=== PATIENT | male | born 1955 | race Caucasian/White ===

== ENCOUNTER 2016-09-02 17:52 | Inpatient (IN) | payer OTHER ==
[2016-09-02] MEDS ORDERED: ADENOSINE 6 MG/2 ML VIAL ONE (18:03)
--- NOTE | 2016-09-02 18:07 | CPEKG ---
Heart Rate: 187 RR Interval: 321 P-R Interval: 128 QRSD Interval: 172 QT Interval: 292 QTC Interval: 515 P Mcandrews: 0 QRS Mcandrews: 144 T Wave Mcandrews: -60 EKG Severity - ABNORMAL ECG - EKG Impression: EXTREME TACHYCARDIA WITH WIDE COMPLEX, NO FURTHER RHYTHM ANALYSIS ATTEMPTED Electronically Signed By: Juanita Dickey 02-Sep-2016 23:12:35
[2016-09-02] MEDS ORDERED: NS 500 ML IV ONE (18:11)
[2016-09-02] MEDS ORDERED: ASPIRIN 81 MG CHEWABLE TAB PO ONE (18:11)
[2016-09-02] MEDS ORDERED: ADENOSINE 6 MG/2 ML VIAL IVP ONE ×2 (18:11→18:25)
--- NOTE | 2016-09-02 18:13 | EDPHY ---
H & P Time Seen by Provider: 09/02/16 18:08 HPI/ROS: CHIEF COMPLAINT: palpitations, chest tightness HISTORY OF PRESENT ILLNESS: Patient is a 60-year-old male with a history of pulmonary hypertension and coronary artery disease who presents emergency department with palpitations and rapid heart beat. Patient states he was cross- country skiing earlier today. He noticed some mild chest tightness. This resolved 20. Skiing. He then noticed palpitations. He checked his heart rate on an O2 sat monitor and found to be tachycardic. 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 He informed the patient he was concerned about pulmonary hypertension and flash pulmonary edema. He sent the patient to the emergency department for further care. At this time the patient has no shortness of breath or chest pain. No cough. He still complains of palpitations. He has no leg pain or swelling. Patient drove out from [place] recently. REVIEW OF SYSTEMS: My complete review of systems is negative except as mentioned in the HPI. Past Medical/Surgical History: Includes pulmonary hypertension, SVT, coronary artery disease, factor 5 Leiden Past surgical history: Includes ablation, stent placement Social history: The patient is not smoke use alcohol. The patient is from [place]. Smoking Status: Never smoked Physical Exam: Vitals noted. Tachycardia. GENERAL: Well-appearing, in no acute distress, alert. HEENT: Eyes normal to inspection, normal pharynx, no signs of dehydration. NECK: No thyromegaly, no lymphadenopathy, supple. RESPIRATORY: Clear to auscultation bilaterally, no rales, rhonchi or wheezing. Normal. CVS: Regular tachycardia, no rubs, murmurs, or gallops. ABDOMEN: Soft, nontender, nondistended, no organomegaly. BACK: Normal to inspection, no CVA tenderness. SKIN: Normal color, no rash, warm, dry. No pallor. EXTREMITIES: No pedal edema, no calf tenderness, no Homans sign or cords, no joint swelling. Normal NEURO/PSYCH: Alert and oriented x3, normal mood and affect. Constitutional: Initial Vital Signs Temperature (C) 36.5 C 09/02/16 17:53 Heart Rate 187 H 09/02/16 17:53 Respiratory Rate 18 09/02/16 17:53 Blood Pressure 115/83 H 09/02/16 17:53 O2 Sat (%) 97 09/02/16 17:53 O2 Delivery Mode Nasal Cannula O2 (L/minute) 4 Allergies/Adverse Reactions: naproxen [Naproxen] Allergy (Intermediate, Verified 06/24/10 08:32) Hives Home Medications: Medication Instructions Recorded ALBUTEROL SULFATE 05/18/10 Aspirin 325 mg 05/18/10 FLOVENT HFA 05/18/10 Lipitor 40mg 05/18/10 Medical Decision Making ED Course/Re-evaluation: In the emergency department I met the patient on arrival. It bedside EKG was performed. Patient was placed on a outpatient therapist. Pacer pads were placed. Patient was noted to have a wide complex tachycardia. This did not appear to be ventricular tachycardia. I obtained patient's old EKG. He does have interventricular conduction delay previously. The morphology was similar. I discussed possible etiologies with the patient and his . I answered all her questions. Patient was given an aspirin 324 mg orally, laboratory studies, chest x-ray were ordered. Procedure: medical cardioversion #1 Indication: SVT I discussed the pros and cons and risks and benefits. I answered all the patient's questions. He consented to the procedure. Patient was given adenosine 12 mg IV push. I reviewed the patient's rhythm strip during medication administration.. The patient had a block and slowing of his rhythm. However, he then went into what appeared to be return of his white complex tachycardia. I discussed the findings with the patient and . I answered all his questions. Procedure: medical cardioversion #2 Indication: SVT I discussed the pros and cons and risks and benefits. I answered all the patient's questions. He consented to the procedure. Patient was given adenosine 12 mg IV push. I reviewed the patient's rhythm strip during medication administration.. The patient had a block and slowing of his rhythm. He then had intermittent paced rhythm with potentially underlying AFib. I discussed the case with Dr. Cornelius from Cardiology. He recommended the patient be given metoprolol 5 mg IV. I discussed the findings and plan with the patient. I paged the patient's pacer interrogated. 18 46: The patient is not lightheaded or dizzy. He has no chest pain. He continues to be tachycardic at 133 with an irregular rhythm. Patient hospitalist service for admission. Dr. Erazo admitted. 1855: Dr. Erazo is in the emergency department evaluating the patient 2000: Patient is still in AFib. His rate ranges from 100-120. He has no chest pain or shortness of breath. He had numerous questions. I was at his bedside for 10-15 minutes answering all questions. Differential Diagnosis: My differential includes but is not limited to SVT, atrial fibrillation, atrial flutter, V-tach, electrolyte abnormality, sugar abnormality, pulmonary embolus, dehydration Critical Care Time: Patient required 35 minutes of critical care time. This was exclusive of any unbundled procedure He had extensive time at the patient's bedside, consultation with Cardiology and Internal Medicine, numerous rechecks. - Data Points Laboratory Results: Laboratory Results 09/02/16 18:00 09/02/16 18:00 09/02/16 18:00 WBC 12.59 H 10^3/uL (3.80-9.50) RBC 4.88 10^6/uL (4.40-6.38) Hgb 15.8 g/dL (13.7-17.5) Hct 45.3 % (40.0-51.0) MCV 92.8 fL (81.5-99.8) MCH 32.4 pg (27.9-34.1) MCHC 34.9 g/dL (32.4-36.7) RDW 13.2 % (11.5-15.2) Plt Count 273 10^3/uL (150-400) MPV 9.0 fL (8.7-11.7) Neut % (Auto) 76.3 H % (39.3-74.2) Lymph % (Auto) 11.2 L % (15.0-45.0) [place] % (Auto) 11.4 % (4.5-13.0) Eos % (Auto) 0.4 L % (0.6-7.6) Baso % (Auto) 0.3 % (0.3-1.7) Nucleat RBC Rel Count 0.0 % (0.0-0.2) Absolute Neuts (auto) 9.60 H 10^3/uL (1.70-6.50) Absolute Lymphs (auto) 1.41 10^3/uL (1.00-3.00) Absolute Monos (auto) 1.44 H 10^3/uL (0.30-0.80) Absolute Eos (auto) 0.05 10^3/uL (0.03-0.40) Absolute Basos (auto) 0.04 10^3/uL (0.02-0.10) Absolute Nucleated RBC 0.00 10^3/uL (0-0.01) Immature Gran % 0.4 % (0.0-1.1) Immature Gran # 0.05 10^3/uL (0.00-0.10) PT 23.8 H SEC (12.0-15.0) INR 2.11 H (0.83-1.16) APTT 34.5 SEC (23.0-38.0) D-Dimer < 0.27 ug/mLFEU (0.00-0.50) Sodium 144 mEq/L (134-144) Potassium 4.0 mEq/L (3.5-5.2) Chloride 106 mEq/L (97-110) Carbon Dioxide 25 mEq/l (22-31) Anion Gap 13 mEq/L (8-16) BUN 25 H mg/dL (7-23) Creatinine 1.1 mg/dL (0.7-1.3) Estimated GFR > 60 Glucose 98 mg/dL (70-100) Calcium 9.7 mg/dL (8.5-10.4) Troponin I 0.028 ng/mL (0-0.034) NT-Pro-B Natriuret Pep 158 H pg/mL (0-125) Medications Given: Discontinued Medications Adenosine (Adenosine) 12 mg IVP EDNOW ONE Stop: 09/02/16 18:12 Last Admin: 09/02/16 18:21 Dose: 12 mg Adenosine (Adenosine) 12 mg IVP EDNOW ONE Stop: 09/02/16 18:26 Last Admin: 09/02/16 18:14 Dose: 12 mg Aspirin (Aspirin) 324 mg PO EDNOW ONE Stop: 09/02/16 18:12 Last Admin: 09/02/16 18:41 Dose: 324 mg Sodium Chloride (Ns) 500 mls @ 0 mls/hr IV ONCE ONE PRN Reason: As Directed Stop: 09/02/16 18:12 Last Admin: 09/02/16 18:00 Dose: 500 mls Metoprolol Tartrate (Lopressor Injection) 5 mg IVP EDNOW ONE Stop: 09/02/16 18:46 Last Admin: 09/02/16 18:30 Dose: 5 mg Departure - Departure Disposition: [facility] Inpatient Acute Clinical Impression: SVT (supraventricular tachycardia), Atrial fibrillation with rapid ventricular response Chest pain Qualifiers: Chest pain type: unspecified Qualifier Code: (R07.9) Chest pain, unspecified Condition: Good
[2016-09-02 18:20] LABS: % IMMATURE GRANULYOCYTES 0.4 % (0.0-1.1); ABSOLUTE IMMATURE GRANULOCYTES 0.05 10^3/uL (0.00-0.10); ADD DIFF? NO; ADD MORPH? NO; ADD SCAN? NO; ATYPICAL LYMPHOCYTE FLAG 0 (0-99); FRAGMENT RBC FLAG 0 (0-99); HEMATOCRIT 45.3 % (40.0-51.0); HEMOGLOBIN 15.8 g/dL (13.7-17.5); LEFT SHIFT FLG 0 (0-99); LIPEMIA HEMOLYSIS FLAG 90 (0-99); MEAN CELL HEMOGLOBIN 32.4 pg (27.9-34.1); MEAN CELL HEMOGLOBIN CONCENTR. 34.9 g/dL (32.4-36.7); MEAN CELL VOLUME 92.8 fL (81.5-99.8); PLATELET CLUMPS FLAG 10 (0-99); PLATELET COUNT 273 10^3/uL (150-400); RED BLOOD CELL COUNT 4.88 10^6/uL (4.40-6.38); RED CELL DISTRIBUTION WIDTH 13.2 % (11.5-15.2)
--- NOTE | 2016-09-02 18:27 | CPEKG ---
Heart Rate: 133 RR Interval: 451 QRSD Interval: 154 QT Interval: 384 QTC Interval: 572 P [place]: 0 QRS [place]: 134 T Wave [place]: -40 EKG Severity - ABNORMAL ECG - EKG Impression: VENTRICULAR-PACED COMPLEXES EKG Impression: NONSPECIFIC INTRAVENTRICULAR CONDUCTION DELAY EKG Impression: NONSPECIFIC ST DEPRESSION Electronically Signed By: Juanita Dickey 02-Sep-2016 23:12:35
[2016-09-02] MEDS ORDERED: METOPROLOL TARTRATE 5 MG/5 ML INJ ONE (18:28)
[2016-09-02 18:29] LABS: INR 2.11 (0.83-1.16); PROTIME(PATIENT) 23.8 SEC (12.0-15.0)
[2016-09-02 18:30] LABS: ANION GAP 13 mEq/L (8-16); APTT 34.5 SEC (23.0-38.0); CALCIUM 9.7 mg/dL (8.5-10.4); CARBON DIOXIDE 25 mEq/l (22-31); CHLORIDE 106 mEq/L (97-110); CREATININE 1.1 mg/dL (0.7-1.3); GLOMERULAR FILTRATION RATE > 60; GLUCOSE 98 mg/dL (70-100); SODIUM 144 mEq/L (134-144)
[2016-09-02 18:41] LABS: TROPONIN I 0.028 ng/mL (0-0.034)
[2016-09-02] MEDS ORDERED: METOPROLOL TARTRATE 5 MG/5 ML INJ IVP ONE (18:45)
[2016-09-02] MEDS ORDERED: LORazepam 0.5 MG TAB PO PRN (19:20)
[2016-09-02] MEDS ORDERED: TEMAZEPAM 15 MG CAP PO PRN (19:20)
[2016-09-02] MEDS ORDERED: LORazepam 2 MG/ML INJ IVP PRN (19:20)
[2016-09-02] MEDS ORDERED: ACETAMINOPHEN 325 MG TAB PO PRN (19:20)
[2016-09-02] MEDS ORDERED: HYDROCODONE/APAP 5/325 TAB PO PRN (19:20)
[2016-09-02] MEDS ORDERED: ALBUTEROL 3 ML DEYVIAL IH PRN (19:20)
[2016-09-02] MEDS ORDERED: ONDANSETRON DISINTEGRATING 4 MG TAB PO PRN (19:20)
[2016-09-02] MEDS ORDERED: ONDANSETRON 4 MG/2 ML VIAL IVP PRN (19:20)
[2016-09-02] MEDS ORDERED: HYDROmorphONE/DILAUDID 1 MG/ML SYR IVP PRN (19:20)
--- NOTE | 2016-09-02 19:25 | DX ---
Portable Chest, 18:32 Clinical Indications: Chest pain Comparison: September 24, 2010 Findings: The heart remains enlarged , with a prominent right atrial contour. The pulmonary vascular ity remains normal. There is no pulmonary edema or pleural effusion. There are chronic old healed lef t rib fractures. There is no pneumothorax. A right chest wall pacer device an associated 3 pacer lead s remain in place. EKG leads and oxygen tubing overlies the chest. Impression: Chronic right-sided cardiomegaly without failure. Nothing acute identified.
[2016-09-02] MEDS ORDERED: NS W/ 20 KCl/L 1,000 ML IV SCH (19:30)
[2016-09-02 19:39] LABS: COLOR PALE YELLOW; LEUKOCYTE ESTERASE,URINE NEGATIVE (NEGATIVE); NITRITE,URINE NEGATIVE (NEGATIVE)
--- NOTE | 2016-09-02 20:10 | GHP ---
[f rep st] HISTORY AND PHYSICAL DATE OF ADMISSION: 09/02/2016 CHIEF COMPLAINT: Shortness of breath and tachycardia. PCP: Dr. Anthony. HISTORY OF PRESENT ILLNESS: This is a 60-year-old male with a known history of pulmonary hypertensio n, coronary artery disease, and asthma, who presents with a complaint of palpitations and rapid heart beat. He was cross-country skiing earlier today and noticed he developed chest tightness rated 4 to 5/10. He was out on a trail skiing and slowed down but continued to notice the palpitations then he was a bit weak but the chest heaviness and pressure did not worsen with further exertion. He has an O2 saturation monitor and checked it for his heart rate and said it was as high as 150. He called the [facility] in [place] who was concerned about flash pulmonary edema and [facility]. Here on arrival, he was noted to be in an SVT at least 150-160, he was gi nicholas 2 doses of adenosine without change and then was given metoprolol 5 mg IV and slowed to atrial fi brillation at a rate of approximately 100. Intermittently, he was noted to be AV paced as he has a d ual chamber pacer which was placed in 2009. I am seeing the patient in the emergency department. Donnell rodríguez heart rate is approximately 100 in atrial fibrillation and he is without chest discomfort or chest pain, shortness of breath. During the time of the event of cross-country skiing, though he had chest pressure, he did not have diaphoresis, nausea, or vomiting. Denies recent fever, chills, sweats, sore throat, cough, or abdominal pain. He does have a known his tory of asthma which he treats daily with a steroid inhaler. He also has known pulmonary hypertensio n which was diagnosed in 2009. PAST MEDICAL HISTORY: 1. Coronary artery disease, status post stent placement in 1998. It was a straight metal stent and not a drug-eluting stent. He is currently taking a baby aspirin along with Coumadin. He has had no recurrence of chest pain and no further intervention since 1998. 2. Cardiac rhythm disturbance characterized today by an SVT as noted above. He is status post a pac emaker placement in [address] Anthony at this facility. 3. Pulmonary hypertension which was diagnosed again in 2009, the etiology is unknown. 4. Factor V Leiden deficiency for which he is on full dose anticoagulation of warfarin. 5. Asthma for which he uses bronchodilators and a steroid inhaler. 6. Hypertension. PAST SURGICAL HISTORY: An ablation in 11/2014 by his pipe fitter ammonia in [place], stent placement in 1998. SOCIAL HISTORY: The gentleman is a nonsmoker but he rarely uses alcohol. He lives in [place]. 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 FAMILY HISTORY: No history of coronary disease or pulmonary disease. MEDICATIONS: Lipitor, Flovent HFA inhaler, aspirin reported at 325 mg although he says he is taking a baby aspirin at 81 mg, and an albuterol inhaler. These medications are being checked by the [employer] cist and I will reconcile them once this is accomplished. PHYSICAL EXAM: GENERAL: This is a pleasant alert gentleman who, at this time, is resting comfortabl y. I am seeing him in the emergency department. VITAL SIGNS: Blood pressure is 93/78, heart rate a pproximately 100 in atrial fibrillation. Respiratory rate 16, nonlabored. Normal oxygen saturation on supplemental oxygen and he is afebrile. HEENT: Normal and there are no signs of trauma. NECK: Supple. CHEST: Chest wall shows a pectus excavatum. Normal chest wall excursion. LUNGS: Clear to P and A without wheezing or rales. HEART: Singular S1 and singular S2. No murmur, gallop, or rub. He is in atrial fibrillation in an irregularly irregular rhythm with a ventricular rate of approxim ately 100. ABDOMEN: Nontender and benign with normoactive bowel sounds. No masses, tenderness, or organomegaly. EXTREMITIES: No edema, cyanosis, or clubbing. The right side of the chest shows a pa cer implanted. NEUROLOGIC: He is oriented x3. Calm and appropriate gentleman. Cranial nerves 2-12 are intact to specific testing. LABORATORY DATA: WBC elevated 12,000, hemoglobin 15.5, INR is therapeutic at 2.1. His Chem panel sh ows mild elevation of BUN at 25 but otherwise is normal. His BNP is 158. Troponin normal at 0.8. ASSESSMENT: 1. Acute supraventricular tachycardia characterized in the emergency department. He is status post 2 doses of adenosine and 1 of metoprolol and now is in atrial fibrillation at a controlled ventricula r rate of approximately 100. His troponin is normal. Cardiology has been notified and the pacer darek romero be interrogated. A cardiac echo will be obtained and serial troponins also obtain in light of the possibility of coronary disease. 2. Known coronary artery disease. Serial troponins will be obtained. 3. Pulmonary hypertension dating to 2009 of an unknown etiology. 4. Factor V Leiden deficiency. We will continue his full dose anticoagulation. 5. Known asthma for which he is on a steroid inhaler and bronchodilators. Appropriate bronchodilato rs will be ordered and we will continue his steroid inhaler. PLAN: Per above, Cardiology will be seeing the patient in the morning. Cardiac consult will be obta ined along with an echocardiogram and serial troponins. We will continue to treat his ventricular ra te with beta blockers, as needed for the evening. It is of note that this is the first time the alondra barrera is aware that he has had atrial fibrillation although that is possible by history as he had his pacemaker placed for bradycardia and there may have been other rhythms noted which he does not recal l. His code status is full. His DVT prophylaxis will be with full dose anticoagulation. POA is unknown at this time. The patient will be admitted to inpatient. He will require greater than 2 midnights for resolution of his cardiac rhythm disturbance. /[id number]/MODL
[2016-09-02] MEDS ORDERED: QUEtiapine FUMARATE 50 MG TAB PO SCH (22:00)
[2016-09-02] MEDS ORDERED: ATORVASTATIN CALCIUM 40 MG TAB PO SCH (22:00)
[2016-09-02] MEDS ORDERED: LORazepam 0.5 MG TAB PO SCH (22:00)
[2016-09-02] MEDS ORDERED: lamoTRIgine 100 MG TAB PO SCH (22:37)
[2016-09-02] MEDS ORDERED: WARFARIN SODIUM 5 MG TAB PO SCH (23:00)
[2016-09-02] MEDS ORDERED: WARFARIN SODIUM 1 MG TAB PO SCH (23:00)
[2016-09-02] MEDS: ARIPiprazole 10 MG TAB PO SCH (23:10)
[2016-09-03 04:47] LABS: % IMMATURE GRANULYOCYTES 0.3 % (0.0-1.1); ABSOLUTE IMMATURE GRANULOCYTES 0.02 10^3/uL (0.00-0.10); ADD DIFF? NO; ADD MORPH? NO; ADD SCAN? NO; ATYPICAL LYMPHOCYTE FLAG 10 (0-99); FRAGMENT RBC FLAG 0 (0-99); HEMATOCRIT 38.9 % (40.0-51.0); HEMOGLOBIN 13.4 g/dL (13.7-17.5); LEFT SHIFT FLG 0 (0-99); LIPEMIA HEMOLYSIS FLAG 90 (0-99); MEAN CELL HEMOGLOBIN 32.2 pg (27.9-34.1); MEAN CELL HEMOGLOBIN CONCENTR. 34.4 g/dL (32.4-36.7); MEAN CELL VOLUME 93.5 fL (81.5-99.8); MEAN PLATELET VOLUME 8.8 fL (8.7-11.7); PLATELET CLUMPS FLAG 10 (0-99); PLATELET COUNT 237 10^3/uL (150-400); RED BLOOD CELL COUNT 4.16 10^6/uL (4.40-6.38); RED CELL DISTRIBUTION WIDTH 13.4 % (11.5-15.2)
[2016-09-03 05:07] LABS: ALANINE AMINOTRANSFERASE 52 IU/L (21-72); ALBUMIN 3.2 g/dL (3.5-5.0); ALKALINE PHOSPHATASE 96 IU/L (38-126); ANION GAP 9 mEq/L (8-16); ASPARTATE AMINOTRANSFERASE 30 IU/L (17-59); BILIRUBIN,TOTAL 0.9 mg/dL (0.1-1.4); CALCIUM 8.5 mg/dL (8.5-10.4); CARBON DIOXIDE 23 mEq/l (22-31); CHLORIDE 111 mEq/L (97-110); GLOMERULAR FILTRATION RATE > 60; GLUCOSE 82 mg/dL (70-100); POTASSIUM 4.1 mEq/L (3.5-5.2); SODIUM 143 mEq/L (134-144); TOTAL PROTEIN 5.4 g/dL (6.3-8.2)
[2016-09-03 05:10] LABS: TROPONIN I 0.076 ng/mL (0-0.034)
[2016-09-03 05:11] LABS: CREATINE KINASE-MB FRACTION 4.64 ng/mL (0-3.19)
[2016-09-03 05:52] LABS: CK-MB INTERPRETATION NEGATIVE (NEGATIVE)
[2016-09-03] MEDS ORDERED: amLODIPine BESYLATE 5 MG TAB PO SCH (09:00)
--- NOTE | 2016-09-03 09:03 | CPEKG ---
Heart Rate: 116 RR Interval: 517 P-R Interval: 140 QRSD Interval: 158 QT Interval: 392 QTC Interval: 545 P Bells: 0 QRS Bells: 135 T Wave Bells: -40 EKG Severity - ABNORMAL ECG - EKG Impression: UNDERLYING AF WITH PACED VENTRICULAR RHYTHM ALTERNATING WITH CONDUCTION OVER EKG Impression: ACCESSORY PATHWAY Electronically Signed By: Sean Delgado 03-Sep-2016 10:20:40
--- NOTE | 2016-09-03 09:46 | PDCARCONS ---
Cardiology Consult Reason for Consult: chest pressure with history of CAD and PCI (bare metal) Chief Complaint: "Tachycardia" Requesting Physician: Hospitalist Team History of Present Illness: Patient is a 60 y/o male with history of pulmonary hypertension, CAD s/p PCI ( unknown vessel), SVT s/p ablation, factor V Leiden (on coumadin), HLP, and HTN, who presented to [facility] ER with complaints of "tachycardia" yesterday after cross country skiing. Patient has been feeling very well in general. Patient is visiting [place] for about two weeks (plans on leaving to fly back [facility] tomorrow). Regular exercise at home has not precipitated symptoms similar to this in the recent past. Chest tightness and pressure were noted, but no juve "pains". No PND or orthopnea. No abnormal shortness of breath, diaphoresis, or dizziness. Given the symptoms noted, the patient contacted cardiology out [facility], and recommendations were for the patient to proceed to the ER. In the ER the patient was noted to be in "SVT". Adenosine was dosed (6 mg then 12 mg) and the patient converted out of SVT and into atrial fibrillation with intermittent pacing. In speaking with the ER physician last night, we opted to admit the patient to the hospital for observation (and serial cardiac biomarkers ) as well as an echocardiogram. Today, the patient is feeling well. No voiced cardiovascular complaints. Echocardiogram with normal wall motion (dilation of the right atrium was noted) as well as right ventricular systolic pressures of 45- 50 mm Hg. No wall motion abnormalities were noted. Moderate tricuspid regurgitation noted ( likely secondary to pacer lead). Mild elevation in troponin has been noted ( 0.075). Ongoing atrial fibrillation with intermittent pacing on the telemetry with rates to 130 bpm. History Information - Allergies/Home Medication List Allergies/Adverse Reactions: naproxen [Naproxen] Allergy (Intermediate, Verified 06/24/10 08:32) Hives Home Medications: Aripiprazole [Abilify] 15 mg PO DAILY 09/02/16 [Last Taken 09/02/16] Aspirin EC [Aspirin EC 81 mg (*)] 81 mg PO DAILY 09/02/16 [Last Taken 09/02/16] Atorvastatin Calcium [Lipitor 40 mg (*)] 40 mg PO HS 09/02/16 [Last Taken ] LORazepam [Ativan (*)] 0.5 mg PO HS 09/02/16 [Last Taken 09/01/16] QUEtiapine FUMARATE [Seroquel 50 mg (*)] 50 mg PO HS 09/02/16 [Last Taken ] Warfarin Sodium [Coumadin 1MG (*)] 0.5 mg PO MOFR 09/02/16 [Last Taken Unknown] Warfarin Sodium [Coumadin 1MG (*)] 1 mg PO SUTUWETHSA 09/02/16 [Last Taken 09/01] Warfarin Sodium [Coumadin 5MG (*)] 5 mg PO DAILY16 09/02/16 [Last Taken Unknown] amLODIPine BESYLATE [Norvasc 5 mg (*)] 7.5 mg PO DAILY 09/02/16 [Last Taken 01/12] lamOTRIGine [Lamictal] 200 mg PO HS 09/02/16 [Last Taken 09/01/16] I have personally reviewed and updated: family history, medical history, social history, surgical history - Past Medical History atrial fibrillation, coronary artery disease, DVT, hypertension, hyperlipidemia , SVT Additional medical history: SVT s/p ablation and history of PCI (bare metal) - Surgical History Reports: ablation, coronary stent - Family History Positive for: non-pertinent - Social History Smoking Status: Never smoked Alcohol Use: Rarely Drug Use: None Cardiac History - Cardiac History Past Cardiac History: CAD, PCI, ABLATION, PACEMAKER Cardiac Risk Factors: hypertension (>140/90), lipidemia, male Timing/Duration: Hours Severity: moderate Severity Scale: 6 Location: substernal Activities at Onset: activity Modifying Factors: improves with: rest, other (adenosine) Associated Symptoms: denies symptoms TO Risk Evaluation age greater or equal to 65: no greater or equal to 3 CAD risk factors: yes known CAD(stenosis greater or eqaul to 50%): yes ASA use in past 7 days: yes severe angina(greater or equal to 2 episodes in 24hrs): no EKG ST changes greater or equal to 0.5mm: yes positive cardiac marker: yes Total Score: 6 TO Score: 40.9% risk Age in Years: < 65 Sex: Male Congestive Heart Failure History: No Hypertension History: Yes Stroke/TIA/Thromboembolism History: No Vascular Disease History: No Diabetes Mellitus: No [id number] Score: 5w Physical Exam Temp Pulse Resp BP Pulse Ox 36.1 C 100 18 91/69 L 92 09/03/16 07:56 09/03/16 07:56 09/03/16 07:56 09/03/16 07:56 09/03/16 07:56 O2 (L/minute) 2 Constitutional: no apparent distress, appears nourished, not in pain Eyes: PERRL Ears, Nose, Mouth, Throat: moist mucous membranes, hearing normal Cardiovascular: systolic murmur, irregularly irregular, tachycardia, No JVD, No edema Peripheral Pulses: 2+: dorsalis-pedis (R), dorsalis-pedis (L) Respiratory: no respiratory distress, no rales or rhonchi, clear to auscultation Gastrointestinal: normoactive bowel sounds, soft, non-tender abdomen Skin: warm, normal color Musculoskeletal: no muscle tenderness Neurologic: AAOx3, CN II-XII Intact Psychiatric: interacting appropriately, not anxious, not encephalopathic Lab and Imaging 09/03/16 04:27 09/03/16 04:27 WBC 6.50 10^3/uL (3.80-9.50) 09/03/16 04:27 RBC 4.16 10^6/uL (4.40-6.38) L 09/03/16 04:27 Hgb 13.4 g/dL (13.7-17.5) L 09/03/16 04:27 Hct 38.9 % (40.0-51.0) L 09/03/16 04:27 MCV 93.5 fL (81.5-99.8) 09/03/16 04:27 MCH 32.2 pg (27.9-34.1) 09/03/16 04:27 MCHC 34.4 g/dL (32.4-36.7) 09/03/16 04:27 RDW 13.4 % (11.5-15.2) 09/03/16 04:27 Plt Count 237 10^3/uL (150-400) 09/03/16 04:27 MPV 8.8 fL (8.7-11.7) 09/03/16 04:27 Neut % (Auto) 61.6 % (39.3-74.2) 09/03/16 04:27 Lymph % (Auto) 23.1 % (15.0-45.0) 09/03/16 04:27 Storey % (Auto) 12.9 % (4.5-13.0) 09/03/16 04:27 Eos % (Auto) 1.8 % (0.6-7.6) 09/03/16 04:27 Baso % (Auto) 0.3 % (0.3-1.7) 09/03/16 04:27 Nucleat RBC Rel Count 0.0 % (0.0-0.2) 09/03/16 04:27 Absolute Neuts (auto) 4.00 10^3/uL (1.70-6.50) 09/03/16 04:27 Absolute Lymphs (auto) 1.50 10^3/uL (1.00-3.00) 09/03/16 04:27 Absolute Monos (auto) 0.84 10^3/uL (0.30-0.80) H 09/03/16 04:27 Absolute Eos (auto) 0.12 10^3/uL (0.03-0.40) 09/03/16 04:27 Absolute Basos (auto) 0.02 10^3/uL (0.02-0.10) 09/03/16 04:27 Absolute Nucleated RBC 0.00 10^3/uL (0-0.01) 09/03/16 04:27 Immature Gran % 0.3 % (0.0-1.1) 09/03/16 04:27 Immature Gran # 0.02 10^3/uL (0.00-0.10) 09/03/16 04:27 PT 23.8 SEC (12.0-15.0) H 09/02/16 18:00 INR 2.11 (0.83-1.16) H 09/02/16 18:00 APTT 34.5 SEC (23.0-38.0) 09/02/16 18:00 D-Dimer < 0.27 ug/mLFEU (0.00-0.50) 09/02/16 18:00 Sodium 143 mEq/L (134-144) 09/03/16 04:27 Potassium 4.1 mEq/L (3.5-5.2) 09/03/16 04:27 Chloride 111 mEq/L (97-110) H 09/03/16 04:27 Carbon Dioxide 23 mEq/l (22-31) 09/03/16 04:27 Anion Gap 9 mEq/L (8-16) 09/03/16 04:27 BUN 22 mg/dL (7-23) 09/03/16 04:27 Creatinine 1.0 mg/dL (0.7-1.3) 09/03/16 04:27 Estimated GFR > 60 09/03/16 04:27 Glucose 82 mg/dL (70-100) 09/03/16 04:27 Calcium 8.5 mg/dL (8.5-10.4) 09/03/16 04:27 Total Bilirubin 0.9 mg/dL (0.1-1.4) 09/03/16 04:27 AST 30 IU/L (17-59) 09/03/16 04:27 ALT 52 IU/L (21-72) 09/03/16 04:27 Alkaline Phosphatase 96 IU/L (38-126) 09/03/16 04:27 Creatine Kinase 174 IU/L (0-224) 09/03/16 04:27 CK-MB (CK-2) Fraction 4.64 ng/mL (0-3.19) H 09/03/16 04:27 CK-MB (CK-2) % 2.7 % (0.0-4.0) 09/03/16 04:27 Creatine Kinase Interp NEGATIVE (NEGATIVE) 09/03/16 04:27 Troponin I 0.076 ng/mL (0-0.034) H 09/03/16 04:27 NT-Pro-B Natriuret Pep 740 pg/mL (0-125) H 09/03/16 04:27 Total Protein 5.4 g/dL (6.3-8.2) L 09/03/16 04:27 Albumin 3.2 g/dL (3.5-5.0) L 09/03/16 04:27 TSH 2.610 uIU/mL (0.465-4.680) 09/03/16 04:27 Urine Color PALE YELLOW 09/02/16 19:30 Urine Appearance CLEAR 09/02/16 19:30 Urine pH 5.0 (5.0-7.5) 09/02/16 19:30 Ur Specific [place] 1.006 (1.002-1.030) 09/02/16 19:30 Urine Protein NEGATIVE (NEGATIVE) 09/02/16 19:30 Urine Ketones NEGATIVE (NEGATIVE) 09/02/16 19:30 Urine Blood NEGATIVE (NEGATIVE) 09/02/16 19:30 Urine Nitrate NEGATIVE (NEGATIVE) 09/02/16 19:30 Urine Bilirubin NEGATIVE (NEGATIVE) 09/02/16 19:30 Urine Urobilinogen NEGATIVE EU (0.2-1.0) 09/02/16 19:30 Ur Leukocyte Esterase NEGATIVE (NEGATIVE) 09/02/16 19:30 Urine Glucose NEGATIVE (NEGATIVE) 09/02/16 19:30 Visualized and Interpreted Chest x-ray results: Yes Chest X-ray Interpretation: no infiltrate Visualized and Interpreted EKG results: Yes EKG Interpretation: Positive for: other (atrial fibrillation and intermittent pacing) Telemetry: atrial fibrillation and intermittent pacing Echocardiogram: normal LVEF with moderate tricuspid regurgitation. pacer lead present. RVSP at 44 mm Hg A/P Assessment: 60 y/o male with history of CAD s/p PCI, SVT s/p ablation, atrial fibrillation ( [id number] is 2 on coumadin), pHTN, HTN, HLP, and factor V Leiden, who presented to [facility] ER with "tachycardia". Telemetry in the ER with SVT, broken with two doses of Adenosine. Ongoing atrial fibrillation is noted. Mild leak to troponin noted (patient in SVT for several hours). Grossly normal echocardiogram. No symptoms at present. 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
[2016-09-03] MEDS: ARIPiprazole 10 MG TAB PO SCH (10:34)
--- NOTE | 2016-09-03 10:44 | ECHO ---
[id number] + + [address] : : [place] [address] : : [phone] + + Adult Echocardiographic Report + ------+ :Name: HARMEET MURDOCK CStudy Date: 09/03/2016 07:59 AM BP: 91/69 mmHg : : Hospital Admission Number: [id number] [facility]ly [facility] n: 217: :: 1955 Gender: Male Height: 66 in : :Age: 60 yrs Race: WH Weight: 140 lb : :Reason For Study: new afib : : BSA: 1.7 meters 2 : :History: new onset afib with known pul htn : + ------+ MMode/2D Measurements & Calculations IVSd: 1.0 cm RVDd: 4.1 cm FS: 41.4 % LVPWd: 0.99 cm LVIDd: 4.1 cm EDV(Teich): 73.4 ml LVIDs: 2.4 cm ESV(Teich): 20.0 ml EF(Teich): 72.7 % Normal Measurement Values: + + :LVIDd (3.5-5.7cm) IVSd (0.6-1.1cm) LVPWd (0.6-1.1cm) Aortic Root (2.0-3.7cm)Left Atrium (1.5-4.0cm): :LV Vol(d) (76-115ml) LV Vol(s) (29-48ml) Ejec Fraction (50-65%)PV Igor (0.6- 1.2m/s) TV Igor (0.4-1.0m/s) : :MV E Igor (0.8-1.0m/s)MV A Igor (0.3-1.0m/s)LVOT Igor (0.7-1.2m/s) Asc Ao Igor ( 0.9-1.8m/s) : + + Doppler Measurements & Calculations MV E max igor: Ao V2 max: LV V1 max: PA V2 max: 56.7 cm/sec 79.4 cm/sec 60.3 cm/sec 64.6 cm/sec MV A max igor: Ao max PG: LV V1 max PG: PA max P.7 cm/sec 2.5 mmHg 1.5 mmHg 1.7 mmHg MV E/A: 1.0 TR max igor: 269.7 cm/sec TR max P.2 mmHg RAP systole: 15.0 mmHg RVSP(TR): 44.2 mmHg Left Ventricle The left ventricle is normal in size and function. There is mild concentric left ventricular hypertrophy. Ejection Fraction = 73%. Diastolic dysfunction is indeterminate. The left ventricular ejection fraction is calculated at 72.7 %. No regional wall motion abnormalities noted. Abnormal septal motion most likely secondary to pacemaker. Right Ventricle The right ventricle is mildly dilated. There is a pacemaker lead in the right ventricle. The right ventricular systolic function is mildly reduced. Atria The left atrial size is normal. The right atrium is moderate to severely dilated. A dilated inferior vena cava suggests increased right atrial pressure. There is a catheter/pacemaker lead seen in the right atrium. Mitral Valve The mitral valve is normal in structure and function. There is trace mitral regurgitation. Tricuspid Valve The tricuspid valve is normal in structure and function. There is no tricuspid stenosis. There is moderate tricuspid regurgitation. Right ventricular systolic pressure is 44mmHg. There is Doppler evidence for moderate pulmonary hypertension. Aortic Valve Aortic valve is not well visualized; however from subcostal window it appears to be trileaflet. There is no aortic stenosis. There is no aortic insufficiency. Pulmonic Valve The pulmonic valve is not well visualized. Great Vessels The aortic root is not well visualized. Pericardium/Pleural There is no pericardial effusion. Conclusion A two-dimensional transthoracic echocardiogram with M-mode and Doppler was performed. (1) Left ventricular systolic ejection fraction was normal (>70%) - septal wall motion consistent with paced rhythm and atrial fibrillation (2) Mild concentric left ventricular hypertrophy (3) Diastolic dysfunction was present - patient was in atrial fibrillation (4) Mild dilation to the right ventricular chamber (5) Grossly normal left atrial dimension with moderate to severe right atrial dilation (6) Grossly normal mitral valve (7) Grossly normal aortic valve (likely trileaflet, but visualization was difficult) (8) Moderate tricuspid regurgitation - RVSP was estimated to be 40-45 mm Hg (9) Poor visualization of the pulmonic valve (10) Pacer to the right ventricular/atrial chambers (11) In comparison to prior echocardiogram (2010), RVSP is slightly lower than prior, and there has been some progression in the degree of TR noted. Final Reading Physician: Alexus Pathak signed on 09/03/2016 10:43 AM Ordering Physician: Amol Erazo Performed By: Kristina Snider
[2016-09-03 12:33] VITALS: PULSE 60; TEMP 98.1
[2016-09-03] MEDS ORDERED: NS 1,000 ML IV ONE (13:01)
[2016-09-03] MEDS ORDERED: ASPIRIN EC 325 MG TAB PO ONE ×2 (13:01→13:07)
[2016-09-03] MEDS ORDERED: FAMOTIDINE 20 MG TAB PO ONE (13:01)
[2016-09-03] MEDS ORDERED: diphenhydrAMINE 25 MG CAP PO ONE ×2 (13:01→13:07)
[2016-09-03] MEDS ORDERED: DIAZEPAM 5 MG TAB PO ONE (13:01)
[2016-09-03] MEDS ORDERED: DIAZEPAM 5 MG TAB ONE (13:07)
[2016-09-03] MEDS ORDERED: FAMOTIDINE 20 MG TAB ONE (13:07)
[2016-09-03] MEDS ORDERED: FLUTICASONE HFA 220 MCG MDI IH SCH ×2 (13:30→21:00)
--- NOTE | 2016-09-03 13:32 | HOSPPROG ---
Hospitalist Progress Note Assessment/Plan: 60 y/o male with h/o CAD visiting from [place] presents with: #SVT (resolved now in nsr) #known CAD with mild troponin elevation #pulm htn #h/o factor v leiden #h/o asthma plan -I discussed the case with Dr. Hawkins and Ashli who plan for cath later today dispo pending cath results Subjective: no chest pain or palpatations Objective: Vital Signs Temp Pulse Resp BP Pulse Ox 36.7 C 60 14 96/67 L 94 09/03/16 12:33 09/03/16 12:33 09/03/16 12:33 09/03/16 12:33 09/03/16 12:33 Laboratory Results 09/03/16 04:27 09/03/16 04:27 09/02/16 09/03/16 09/04/16 05:59 05:59 05:59 Intake Total 1225 350 Balance 1225 350 PT 23.8 SEC (12.0-15.0) H 09/02/16 18:00 INR 2.11 (0.83-1.16) H 09/02/16 18:00 Laboratory Tests 09/02/16 09/03/16 18:00 04:27 PT 23.8 H INR 2.11 H CK-MB (CK-2) Fraction 4.64 H Troponin I 0.076 H - Physical Exam Constitutional: no apparent distress, appears nourished, not in pain Ears, Nose, Mouth, Throat: moist mucous membranes, hearing normal, ears appear normal, no oral mucosal ulcers Cardiovascular: regular rate and rhythym, no murmur, rub, or gallop, No JVD, No edema Respiratory: no respiratory distress, no rales or rhonchi, clear to auscultation Gastrointestinal: normoactive bowel sounds, soft, non-tender abdomen, no palpable masses ICD10 Worksheet Patient Problems: Problems Problem Status Diagnosed Atrial fibrillation with rapid ventricular response Acute Chest pain Acute SVT (supraventricular tachycardia) Acute
[2016-09-03] MEDS ORDERED: LIDOCAINE 1% 30 ML SDV ONE (13:36)
[2016-09-03] MEDS ORDERED: fentaNYL 100 MCG/2 ML INJ ONE (13:36)
[2016-09-03] MEDS ORDERED: IOPAMIDOL (ISOVUE 370) 100 ML BTL IV ONE (13:37)
[2016-09-03] MEDS ORDERED: VERAPAMIL 5 MG/2 ML VIAL ONE (13:37)
[2016-09-03] MEDS ORDERED: MIDAZOLAM 2 MG/2 ML VIAL ONE (13:37)
[2016-09-03] MEDS ORDERED: HEPARIN 10,000 UNIT/10 ML MDV ONE (13:37)
--- NOTE | 2016-09-03 14:51 | PDDXCAT ---
Diagnostic Cath Note - . Date: 09/03/16 System Planning Engineer: Ross Indication: other (60-year-old male visiting from [place]. Has a history of CAD with prior PCI approximately 15 years ago. Presented with recurrent atrial arrhythmias and RVR in conjunction with chest pressure and a minimal troponin elevation. Clinical service and electrophysiology requested cardiac catheterization.) - Procedure Access: right wrist Procedure: left heart catheterization, coronary angiography, left ventriculogram - Materials Left Heart Cath size: 5F Left Heart Cath materials: other (Sightseer and Pigtail) - Findings-Left Heart Catheterization LM: Normal. LAD: Minimal irregularities. Fluoroscopy reveals the presence of a previously placed stent in the proximal portion of the first diagonal branch. Angiography reveals a 50-70% ostial stenosis. LCX: Large, dominant with minimal irregularities. RCA: Small, non-dominant with minimal irregularities. LVEF: 65% Complications: None Estimated blood loss: <50ml Closure method: TR Band Assessment: 1) Normal LV systolic function. 2) CAD as described above with moderate restenosis of the first diagonal branch. Plan: Clinical picture and angiographic results discussed with the electrophysiology service. The ostial first diagonal branch lesion is not not involved in patient' s arrhythmia issues. Suspect that the first diagonal branch has had this level of restenosis for a long time. It is likely not causing clinical angina when his arrhythmias are adequately controlled. PCI deferred. The patient will return to his usual cardiology care providers in [place]. Patient Problems: Problems Problem Status Diagnosed Atrial fibrillation with rapid ventricular response Acute Chest pain Acute SVT (supraventricular tachycardia) Acute
[2016-09-03] MEDS ORDERED: WARFARIN SODIUM 1 MG TAB PO SCH (16:00)
--- NOTE | 2016-09-03 16:16 | CPEKG ---
Heart Rate: 60 RR Interval: 1000 P-R Interval: 176 QRSD Interval: 156 QT Interval: 480 QTC Interval: 480 QRS Gentry: 122 T Wave Gentry: -46 EKG Severity - ABNORMAL ECG - EKG Impression: ATRIAL-PACED RHYTHM EKG Impression: NONSPECIFIC INTRAVENTRICULAR CONDUCTION DELAY , ATYPICAL RBBB Electronically Signed By: Sean Delgado 03-Sep-2016 16:29:38
[2016-09-03 16:43] VITALS: BP 111/77; RESP 16; O2SAT 92
--- NOTE | 2016-09-03 17:08 | GCON ---
[f rep st] CONSULTATION REFERRING PHYSICIAN: Dr. Shaheed Cornelius This is a 60-year-old with past history of pulmonary hypertension, coronary artery disease, status post PCI, SVT, status post ablation on the right side, factor V Leiden, dyslipidemia, hypertension who presented to the [facility] ER with complains of tachycardia after cross-country skiing. Patient has been feeling well in general with only short episodes of palpitations. He is visiting [place] and was cross-country skiing when he started feeling the palpitations, his heart racing, and some chest tightness and pressure. He noted his heart rate to be 160 beats per minute consistently for 5 hours even after stopping cross-country skiing and so he decided to come to the emergency room. Adenosine was given where he converted from SVT to atrial fibrillation with pre- excited beats as well as intermittent pacing. I saw him the day after the admission (today) and he had no significant chest pain/pressure, lightheadedness , dizziness, presyncope, or syncope. He mentioned that post ablation he is much better; however, he does have some episodes of palpitation. He notes that he has had AFib in the past. Echocardiogram showed normal wall motion, RV pressure of 45-50, no left ventricular regional wall motion abnormality, moderate TR noted. Mild troponin elevation. Looking at his tele monitor and EKG, it appears that he had SVT with abnormal QRS pattern, negative QRS in I and aVL, positive in V1 as well as II, III and aVF. QRS width is about 160ms. Device interrogation shows 2:1 conduction started at 1:30pm on Tuesday and then after three hours degenerated into AF. PAST MEDICAL HISTORY: 1. Coronary artery disease, status post PCI. 2. SVT, status post ablation ? for AVNRT. 3. Dyslipidemia. 4. Hypertension. 5. Pacemaker implant for ? orthostatic hypotension. MEDICATION: Abilify, aspirin, Lipitor, Ativan, Coumadin. PAST SURGICAL HISTORY: Ablation, coronary stent, and pacemaker implant. FAMILY HISTORY: Noncontributory. ALLERGIES: Allergic to Naproxen. PHYSICAL EXAM: VITAL SIGNS: Blood pressure of 130/80, pulse of 110 in atrial fibrillation, oxygen saturation 92%. HEENT: Pupils equal, reacting to light, accommodating. NECK: No JVD. No lymphadenopathy. No thyromegaly. CHEST: Good breath sounds bilaterally, equal. No rales, rhonchi, or rub. CARDIOVASCULAR: S1, S2. Irregular. No S3. Systolic ejection murmur noted. ABDOMEN: Soft, nontender. No guarding or rigidity. Bowel sounds present. EXTREMITIES: No edema. No clubbing. LABORATORY DATA: Initial EKG: There is a rhythm strip in the chart which shows regular SVT with QRS which is positive in V1, positive in II, III and aVF. The QRS rate is 160 beats per minute. There is also an EKG which shows atrial fibrillation with conducted beats as well as alternating with paced QRS beats. Echocardiogram as described in H and P. Once AF terminated, it was clear that his baseline conducted QRS is abnormal as noted during the tachycardia with QRS width of 164ms with RB mprphology, negative QRS in I, aVL and positive in II, III and aVF Lab values evaluated did show INR of 2.11, troponin of 0.076, creatinine is normal. IMPRESSION AND PLAN: 1. This is a 60-year-old male with a past history of supraventricular tachycardia, status post ablation, coronary artery disease, pulmonary hypertension who comes in the supraventricular tachycardia with 2:1 conduction as well as atrial fibrillation. The patient has highly unusual baseline QRS.. His device interrogation demonstrates Atach vs Aflutter with 2:1 conduction. The has AF also. I believe that he will benefit from an EP study and probably an ablation of the Atach vs Atraial flutter as well as AF. I have discussed this with the patient. He is due to go to [place] tomorrow. I have discussed the case with his primary car ferry master out there and outlined possible plan. The pt has apptmt with her on Sep 10. 2. Increased troponin. Dr Shaheed Cornelius is evaluating him for ischemia. Thank you for letting me participate in the patient's care. Feel free to call me for questions you may have. Sincerely, /[id number]/MODL MTDD
--- NOTE | 2016-09-03 19:18 | GDS ---
[f rep st] DISCHARGE SUMMARY DISCHARGE DIAGNOSES: 1. Resolved supraventricular tachycardia. 2. History of coronary artery disease. 3. Pulmonary hypertension. 4. Factor V Leiden deficiency. 5. Asthma. CONSULTANTS: Himanshu Hawkins, Cardiology. HOSPITAL COURSE AND STAY BY PROBLEM: SVT: The patient was admitted to the hospital where he had a c ardiac catheterization done that did not reveal any flow-limiting stenosis. The patient converted to sinus rhythm. Dr. Hawkins recommended that the patient start metoprolol 12.5 mg p.o. b.i.d. and stop his home dose of Norvasc. DISCHARGE PHYSICAL EXAM: Please refer to progress note in [facility]. PROCEDURES DONE THIS HOSPITAL STAY: Cardiac catheterization on 09/03/2016. Refer to report. DISCHARGE MEDICATIONS: Please refer to discharge medication reconciliation in [facility] for full deta ils. Below is a preliminary list: 1. Home dose of Norvasc was discontinued. 2. New medications on hospital discharge: Metoprolol 12.5 mg p.o. b.i.d. 3. All other home medications are continued at their usual dosages. DISCHARGE INSTRUCTIONS: The patient will be discharged from the hospital where he should follow up w ith his process consultant upon returning back to [place]. /[id number]/MODL
[2016-09-03] MEDS ORDERED: METOPROLOL TARTRATE 25 MG TAB PO SCH (21:00)
[2016-09-03] MEDS ORDERED: lamoTRIgine 100 MG TAB PO SCH (21:00)
[2016-09-04] MEDS ORDERED: amLODIPine BESYLATE 5 MG TAB PO SCH (09:00)
== END 2016-09-03 19:07 | disposition home or self-care (01) | DRG 287 ==
LOC: OBSVTOIN 19:16 → F2W 20:13
PROVIDERS: ADMIT Internal Medicine Pulmonary Disease; ATTEND Family Medicine
PROC: B2151ZZ Fluoroscopy of Left Heart using Low Osmolar Contrast (ICD-10-PCS; principal; 2016-09-03)
PROC: 4A023N7 Measurement of Cardiac Sampling and Pressure, Left Heart, Percutaneous Approach (ICD-10-PCS; principal; 2016-09-03)
PROC: B2111ZZ Fluoroscopy of Multiple Coronary Arteries using Low Osmolar Contrast (ICD-10-PCS; principal; 2016-09-03)
DX: I47.1 Supraventricular tachycardia (principal); D68.2 Hereditary deficiency of other clotting factors; I48.91 Unspecified atrial fibrillation; I10 Essential (primary) hypertension; I25.10 Atherosclerotic heart disease of native coronary artery without angina pectoris; I27.2 Other secondary pulmonary hypertension; J45.909 Unspecified asthma, uncomplicated; Z95.5 Presence of coronary angioplasty implant and graft; Z95.0 Presence of cardiac pacemaker
CPT/HCPCS: 96374; C1769; J0153; J1644; J2250; J3010; Q9967